=== PATIENT | female | born 1945 | race Caucasian/White ===

== ENCOUNTER 2017-06-28 08:18 | Inpatient (IN) | payer MEDICARE, OTHER ==
[~2017-06-28] VITALS: Ht 154.9 cm; Wt 49.6 kg
[2017-06-28] MEDS: METOPROLOL 1 MG/ML, 5ML IVPush PRN ×3 (08:32→08:51)
[2017-06-28] MEDS ORDERED: ASPIRIN 81 MG TABLET EC PO STA (08:34)
[2017-06-28] MEDS ORDERED: ASPIRIN 325 MG TABLET PO STA (08:34)
[2017-06-28] MEDS ORDERED: SODIUM CHLORIDE 0.9% 1,000 ML IV SCH (08:34)
[2017-06-28 08:54] LABS: HEMATOCRIT 47.9 % (34.6-47.8); HEMOGLOBIN 15.4 g/dL (11.7-16.4)
[2017-06-28] MEDS ORDERED: FUROSEMIDE 40 MG/4 ML IV ONE (09:00)
[2017-06-28] MEDS ORDERED: SODIUM CHLORIDE FLUSH 10ML SYR IVF ONE ×2 (09:00→10:00)
[2017-06-28] MEDS ORDERED: SODIUM CHLORIDE 0.9% 1,000ML IVBOLUS ONE (09:00)
[2017-06-28] MEDS: PLEASE ENTER HEIGHT AND WEIGHT MC SCH ×2 (09:00→17:00)
[2017-06-28] MEDS ORDERED: ONDANSETRON 2MG/ML, 2ML IVPush ONE (09:00)
[2017-06-28 09:07] LABS: ASPARTATE AMINO TRANSFERASE 51 U/L (15-37); BLOOD UREA NITROGEN 22 mg/dL (7-18)
[2017-06-28] MEDS ORDERED: ONDANSETRON 2MG/ML, 2ML ONE (09:29)
[2017-06-28] MEDS ORDERED: METOPROLOL 1 MG/ML, 5ML ONE (09:53)
[2017-06-28] MEDS ORDERED: ASPIRIN 81 MG TABLET CHEW ONE (09:53)
[2017-06-28] MEDS ORDERED: LORazepam 2 MG/ML, 1ML ONE (11:24)
[2017-06-28] MEDS ORDERED: LORazepam 2 MG/ML, 1ML IVPush ONE (11:30)
[2017-06-28] MEDS ORDERED: OMNIPAQUE 350 MG/ML, 100ML BOTTLE ONE (12:09)
[2017-06-28] MEDS ORDERED: ACETAMINOPHEN 325 MG TABLET PO PRN (14:30)
[2017-06-28] MEDS ORDERED: ENALAPRILAT 1.25 MG/ML, 2ML IVPush PRN (14:30)
[2017-06-28] MEDS ORDERED: FUROSEMIDE 40 MG/4 ML ONE (15:11)
[2017-06-28 15:16] VITALS: BP 110/78
[2017-06-28] MEDS: CARVEDILOL 3.125 MG TABLET PO SCH ×2 (15:18→20:33)
[2017-06-28] MEDS: HEPARIN 5,000 UNITS/ML, 1ML SQ SCH ×2 (15:19→22:21)
[2017-06-28] MEDS: VALSARTAN 160 MG TABLET PO SCH (15:19)
[2017-06-28] MEDS: POTASSIUM CHLORIDE 10 MEQ TABLET.ER PO SCH (17:49)
[2017-06-28 20:10] VITALS: BP 101/70
[2017-06-28] MEDS: FUROSEMIDE 20 MG/2 ML IV SCH (20:33)
[2017-06-28] MEDS ORDERED: FUROSEMIDE 20 MG TABLET PO SCH (21:00)
[2017-06-28 21:14] LABS: IS PT STATUS REG ER OR PRE ER? NO
[2017-06-29 02:59] VITALS: BP 120/78
[2017-06-29 04:55] LABS: HEMATOCRIT 41.3 % (34.6-47.8); HEMOGLOBIN 13.9 g/dL (11.7-16.4); WHITE BLOOD COUNT 7.7 x10^3/uL (3.4-10)
[2017-06-29 05:09] LABS: BLOOD UREA NITROGEN 30 mg/dL (7-18)
[2017-06-29] MEDS: CARVEDILOL 3.125 MG TABLET PO SCH (05:23)
[2017-06-29] MEDS: HEPARIN 5,000 UNITS/ML, 1ML SQ SCH ×3 (05:23→21:53)
[2017-06-29 07:20] VITALS: BP 99/64
[2017-06-29] MEDS: FUROSEMIDE 20 MG/2 ML IV SCH ×2 (08:31→18:10)
[2017-06-29] MEDS: POTASSIUM CHLORIDE 10 MEQ TABLET.ER PO SCH ×2 (08:32→18:10)
[2017-06-29] MEDS: VALSARTAN 160 MG TABLET PO SCH (10:41)
[2017-06-29 12:35] VITALS: BP 109/70
[2017-06-29] MEDS: MAGNESIUM OXIDE 400 MG TABLET PO SCH ×2 (14:19→21:52)
[2017-06-29] MEDS: CARVEDILOL 6.25 MG TABLET PO SCH (18:10)
[2017-06-29 20:35] VITALS: BP 107/64
[2017-06-29] MEDS: ATORVASTATIN 40 MG TABLET PO SCH (21:52)
[2017-06-30] VITALS (7 sets, daily range): BP systolic 81–116; BP diastolic 57–78
[2017-06-30] MEDS: HEPARIN 5,000 UNITS/ML, 1ML SQ SCH ×3 (05:22→22:28)
[2017-06-30] MEDS: CARVEDILOL 6.25 MG TABLET PO SCH ×2 (05:22→17:15)
[2017-06-30] MEDS: FUROSEMIDE 20 MG/2 ML IV SCH ×2 (09:04→18:08)
[2017-06-30] MEDS: VALSARTAN 160 MG TABLET PO SCH (09:04)
[2017-06-30] MEDS: MAGNESIUM OXIDE 400 MG TABLET PO SCH ×2 (09:04→22:28)
[2017-06-30] MEDS: POTASSIUM CHLORIDE 10 MEQ TABLET.ER PO SCH ×2 (09:04→22:28)
[2017-06-30] MEDS ORDERED: MIDAZOLAM 1 MG/ML, 5ML ONE (13:38)
[2017-06-30] MEDS ORDERED: TICAGRELOR 90 MG TABLET ONE (13:38)
[2017-06-30] MEDS ORDERED: BIVALIRUDIN 250 MG ONE (13:38)
[2017-06-30] MEDS ORDERED: LIDOCAINE 2%, 20ML ONE (13:38)
[2017-06-30] MEDS ORDERED: VERAPAMIL 2.5 MG/ML, 2ML ONE (13:38)
[2017-06-30] MEDS ORDERED: HEPARIN 1,000 UNITS/ML, 10ML ONE (13:38)
[2017-06-30] MEDS ORDERED: FENTANYL PF 100 MCG/2ML ONE (13:38)
[2017-06-30] MEDS ORDERED: BIVALIRUDIN 250 MG in DEXTROSE 5% 50 ML IV SCH (16:32)
[2017-06-30] MEDS ORDERED: FUROSEMIDE 40 MG/4 ML IV ONE (18:30)
[2017-06-30] MEDS ORDERED: FUROSEMIDE 40 MG/4 ML ONE (18:32)
[2017-06-30] MEDS: TICAGRELOR 90 MG TABLET PO SCH (19:53)
[2017-06-30] MEDS: ATORVASTATIN 40 MG TABLET PO SCH (22:28)
[2017-06-30 23:01] LABS: IS PT STATUS REG ER OR PRE ER? NO
[2017-07-01] VITALS (7 sets, daily range): BP systolic 89–99; BP diastolic 57–66
[2017-07-01 05:12] LABS: HEMATOCRIT 44.9 % (34.6-47.8); HEMOGLOBIN 14.9 g/dL (11.7-16.4)
[2017-07-01 05:23] LABS: BLOOD UREA NITROGEN 22 mg/dL (7-18)
[2017-07-01] MEDS: HEPARIN 5,000 UNITS/ML, 1ML SQ SCH ×3 (06:17→20:12)
[2017-07-01] MEDS: FUROSEMIDE 20 MG/2 ML IV SCH (07:30)
[2017-07-01] MEDS: POTASSIUM CHLORIDE 10 MEQ TABLET.ER PO SCH (08:00)
[2017-07-01] MEDS ORDERED: POTASSIUM CHLORIDE 20 MEQ TAB.ER.PRT PO ONE (08:30)
[2017-07-01] MEDS ORDERED: FUROSEMIDE 40 MG TABLET ONE (08:55)
[2017-07-01] MEDS: VALSARTAN 80 MG TABLET PO SCH (09:00)
[2017-07-01] MEDS ORDERED: FUROSEMIDE 10 MG/ML ORAL SOL PO SCH (09:00)
[2017-07-01] MEDS: MAGNESIUM OXIDE 400 MG TABLET PO SCH ×2 (09:06→20:12)
[2017-07-01] MEDS: TICAGRELOR 90 MG TABLET PO SCH ×2 (09:06→20:12)
[2017-07-01] MEDS: CARVEDILOL 6.25 MG TABLET PO SCH ×2 (09:06→20:12)
[2017-07-01] MEDS: ASPIRIN 81 MG TABLET EC PO SCH (15:52)
[2017-07-01] MEDS ORDERED: LORazepam 2 MG/ML, 1ML IVPush ONE (16:00)
[2017-07-01] MEDS: ATORVASTATIN 40 MG TABLET PO SCH (20:12)
[2017-07-02] VITALS (8 sets, daily range): BP systolic 82–102; BP diastolic 44–68
[2017-07-02] MEDS: HEPARIN 5,000 UNITS/ML, 1ML SQ SCH ×3 (05:26→22:27)
[2017-07-02] MEDS: ASPIRIN 81 MG TABLET EC PO SCH (05:26)
[2017-07-02 05:50] LABS: HEMATOCRIT 43.5 % (34.6-47.8); HEMOGLOBIN 14.7 g/dL (11.7-16.4); WHITE BLOOD COUNT 8.3 x10^3/uL (3.4-10)
[2017-07-02 05:56] LABS: BLOOD UREA NITROGEN 24 mg/dL (7-18)
[2017-07-02] MEDS: CARVEDILOL 6.25 MG TABLET PO SCH ×2 (07:48→21:20)
[2017-07-02] MEDS ORDERED: FUROSEMIDE 10 MG/ML ORAL SOL PO SCH (09:00)
[2017-07-02] MEDS: VALSARTAN 80 MG TABLET PO SCH (09:00)
[2017-07-02] MEDS: MAGNESIUM OXIDE 400 MG TABLET PO SCH ×2 (09:35→21:26)
[2017-07-02] MEDS: TICAGRELOR 90 MG TABLET PO SCH ×2 (09:35→21:20)
[2017-07-02] MEDS ORDERED: POTASSIUM CHLORIDE 20 MEQ TAB.ER.PRT PO ONE (11:00)
[2017-07-02] MEDS ORDERED: BISACODYL 10 MG SUPP PR PRN (14:00)
[2017-07-02] MEDS ORDERED: ENALAPRILAT 1.25 MG/ML, 2ML IVPush PRN (18:30)
[2017-07-02] MEDS ORDERED: ACETAMINOPHEN 325 MG TABLET PO PRN (18:30)
[2017-07-02] MEDS ORDERED: TEMAZEPAM 30 MG CAPSULE PO PRN (20:30)
[2017-07-02] MEDS: DOCUSATE 100 MG CAPSULE PO SCH (21:20)
[2017-07-02] MEDS: ATORVASTATIN 40 MG TABLET PO SCH (21:20)
[2017-07-03 01:41] VITALS: BP 96/58
[2017-07-03 06:22] VITALS: BP 89/55
[2017-07-03] MEDS: HEPARIN 5,000 UNITS/ML, 1ML SQ SCH (06:23)
[2017-07-03] MEDS: ASPIRIN 81 MG TABLET EC PO SCH (06:23)
[2017-07-03] MEDS ORDERED: POTASSIUM CHLORIDE 20 MEQ TAB.ER.PRT PO ONE (08:00)
[2017-07-03] MEDS ORDERED: POTASSIUM CHLORIDE 20 MEQ TAB.ER.PRT PO SCH (08:00)
[2017-07-03 08:02] VITALS: BP 90/55
[2017-07-03] MEDS ORDERED: FUROSEMIDE 40 MG TABLET ONE (08:38)
[2017-07-03] MEDS: DOCUSATE 100 MG CAPSULE PO SCH (08:57)
[2017-07-03] MEDS: TICAGRELOR 90 MG TABLET PO SCH (08:57)
[2017-07-03] MEDS: MAGNESIUM OXIDE 400 MG TABLET PO SCH (08:57)
[2017-07-03] MEDS: CARVEDILOL 6.25 MG TABLET PO SCH (08:58)
[2017-07-03] MEDS: FUROSEMIDE 10 MG/ML ORAL SOL PO SCH ×2 (08:59→12:43)
[2017-07-03] MEDS ORDERED: VALSARTAN 80 MG TABLET PO SCH (09:00)
[2017-07-03] MEDS ORDERED: TICA90TA PO (12:56)
[2017-07-03] MEDS ORDERED: ATOR40TA78 PO (12:56)
[2017-07-03] MEDS ORDERED: FURO20TA3 PO (12:56)
[2017-07-03] MEDS ORDERED: ASPI-621 PO (12:56)
[2017-07-03] MEDS ORDERED: MAGN400T26 PO (12:56)
[2017-07-03] MEDS ORDERED: CARV6.2512 PO (12:56)
[2017-07-03] MEDS ORDERED: POTA20TA6 PO (12:56)
== END 2017-07-03 14:40 | disposition home or self-care (01) | DRG 246 ==
LOC: ED 08:42 → EDIP 12:39 → 5SO 14:41
PROVIDERS: ADMIT Hospitalist; ATTEND Internal Medicine
PROC: 027034Z Dilation of Coronary Artery, One Artery with Drug-eluting Intraluminal Device, Percutaneous Approach (ICD-10-PCS; principal; 2017-06-30)
PROC: 4A023N7 Measurement of Cardiac Sampling and Pressure, Left Heart, Percutaneous Approach (ICD-10-PCS; 2017-06-30)
PROC: B2111ZZ Fluoroscopy of Multiple Coronary Arteries using Low Osmolar Contrast (ICD-10-PCS; 2017-06-30)
DX: I21.4 Non-ST elevation (NSTEMI) myocardial infarction (principal); I50.23 Acute on chronic systolic (congestive) heart failure; I47.2 Ventricular tachycardia; I95.9 Hypotension, unspecified; I42.9 Cardiomyopathy, unspecified; E44.1 Mild protein-calorie malnutrition; I11.0 Hypertensive heart disease with heart failure; E78.5 Hyperlipidemia, unspecified; F41.9 Anxiety disorder, unspecified; K21.9 Gastro-esophageal reflux disease without esophagitis; Z68.20 Body mass index [BMI] 20.0-20.9, adult; M19.90 Unspecified osteoarthritis, unspecified site; Z80.7 Family history of other malignant neoplasms of lymphoid, hematopoietic and related tissues; Z82.49 Family history of ischemic heart disease and other diseases of the circulatory system; Z87.891 Personal history of nicotine dependence
CPT/HCPCS: 36415; 71010; 71020; 71275; 80047; 80048; 80053; 80061; 82040; 82306; 83036; 83735; 83880; 84443; 84481; 84484; 85014; 85018; 85025; 85379; 85610; 85730; 93005; 93306; 93458; 96374; 96375; 99156; 99157; C1769; C1894; C9600; J0583; J1644; J1940; J2250; J2405; J3010; J3490; Q9967; C1725; C1874; C1887; J2060; J7030

== ENCOUNTER → 2017-08-24 | Outpatient (CLI) | payer MEDICARE, OTHER ==
[~2017-08-24] MED LIST: ASPI-621 PO; ATOR40TA78 PO; CARV6.2512 PO; FURO20TA3 PO; MAGN400T26 PO; POTA20TA6 PO; TICA90TA PO
== END | disposition home or self-care (01) ==
LOC: CFH 09:21
PROVIDERS: ATTEND Internal Medicine Cardiovascular Disease
DX: I08.3 Combined rheumatic disorders of mitral, aortic and tricuspid valves (principal); I11.0 Hypertensive heart disease with heart failure; I50.9 Heart failure, unspecified; E78.5 Hyperlipidemia, unspecified
CPT/HCPCS: 93306

== ENCOUNTER → 2018-11-14 | Outpatient (CLI) | payer MEDICARE, OTHER ==
[~2018-11-14] MED LIST changes: -ASPI-621 PO; +ASPI81TA45 PO
== END | disposition home or self-care (01) ==
LOC: CFH 13:26 → EDSTATUS 14:00
PROVIDERS: ATTEND Internal Medicine Cardiovascular Disease
DX: I08.3 Combined rheumatic disorders of mitral, aortic and tricuspid valves (principal); I50.22 Chronic systolic (congestive) heart failure
CPT/HCPCS: 0399T; 93306

== ENCOUNTER → 2020-11-11 | Outpatient (CLI) | payer MEDICARE, OTHER | END | disposition home or self-care (01) | LOC: CFH 09:54 | PROVIDERS: ATTEND Internal Medicine Cardiovascular Disease | DX: I08.3 Combined rheumatic disorders of mitral, aortic and tricuspid valves (principal); I11.0 Hypertensive heart disease with heart failure; I50.22 Chronic systolic (congestive) heart failure | CPT/HCPCS: 93306 ==